=== PATIENT | male | born 1950 | race Caucasian/White ===

== ENCOUNTER 2021-03-03 10:18 | Emergency (ER) | payer MEDICARE, OTHER ==
[2021-03-03 11:11] LABS: BASOPHIL 0.8 % (0-2); EOSINOPHIL 2.4 % (0-7); LYMPHOCYTE 29.9 % (15-48); MCH 29.8 pg (25.0-31.0); MCHC 32.6 g/dL (32.0-36.0); MCV 91.3 fL (78.0-100.0); MONOCYTE 8.8 % (0-12); NEUTROPHIL 57.9 % (41-80); NRBC 0; PLT 163 K/uL (150-400); RBC 5.04 M/uL (4.70-6.00); RDW 14.6 % (11.5-14.0); WBC 5.1 K/uL (4.0-10.5)
[2021-03-03 11:14] LABS: INR 2.67 (0.9-1.2); PROTHROMBIN TIME 27.1 SECONDS (11.4-13.6); PTT 37.9 SECONDS (22.2-34.7)
[2021-03-03 11:39] LABS: ALBUMIN 3.3 g/dL (3.4-5.0); BILIRUBIN - TOTAL 0.8 mg/dL (0.2-1.0); BUN/CREAT RATIO (CALC) 16.8 RATIO; CREATININE 1.13 mg/dL (0.67-1.17); POTASSIUM 3.9 mmol/L (3.5-5.1); TOTAL PROTEIN 6.3 g/dL (6.4-8.2)
== END 2021-03-03 19:36 | disposition other institution (70) ==
LOC: FER 10:18
PROVIDERS: Emergency Medicine
DX: R55 Syncope and collapse (principal); S00.03XA Contusion of scalp, initial encounter; I10 Essential (primary) hypertension; I48.91 Unspecified atrial fibrillation; Z79.01 Long term (current) use of anticoagulants; Z88.0 Allergy status to penicillin; Z91.018 Allergy to other foods; W19.XXXA Unspecified fall, initial encounter
CPT/HCPCS: 36415; 70450; 71045; 72125; 80053; 83735; 84484; 85025; 85610; 85730; 93005; J7040